=== PATIENT | male | born 1945 | race Caucasian/White ===

== ENCOUNTER 2019-08-10 21:03 | Inpatient (IN) ==
[2019-08-10 22:26] LABS: Basophils # 0.1 K/mcL (0.0-0.2); Basophils % 0.7 %; Eosinophils # 0.2 K/mcL (0.0-0.6); Eosinophils % 2.7 %; Hematocrit 24.9 % (37.5-50.1); Hemoglobin 8.3 g/dL (12.9-16.9); Immature Granulocytes % 0.4 % (0-4); Lymphocytes # 2.7 K/mcL (0.6-4.6); Lymphocytes % 35.5 %; Mean Corpuscular HGB Conc 33.3 g/dL (31.6-35.5); Mean Corpuscular Hemoglobin 31.6 pg (28.0-33.3); Mean Corpuscular Volume 94.7 fL (83.0-100.0); Monocytes # 0.7 K/mcL (0.0-1.3); Monocytes % 8.7 %; Platelet Count 130 K/mcL (140-400); Red Blood Count 2.63 M/mcL (4.19-5.50); Red Cell Distribution Width 14.8 % (11.5-14.5); White Blood Count 7.7 K/mcL (4.3-11.1)
[2019-08-10 22:56] LABS: Albumin/Globulin Ratio 1.1 (1.1-2.2); Bilirubin,Total 0.3 mg/dL (0.3-1.0); Calcium 7.6 mg/dL (8.6-10.3); Globulin 2.8 g/dL (2.4-3.5); Total Protein 5.8 g/dL (6.4-8.9)
[2019-08-10 22:58] LABS: Bilirubin,Urine Negative (Negative); Blood,Urine Negative (Negative); Clarity,Urine Clear (Clear); Color,Urine Yellow (Yellow); Glucose,Urine (UA) Normal (Normal); Ketones,Urine Negative (Negative); Leukocyte Esterase,Urine Negative (Negative); Nitrite,Urine Negative (Negative); Protein,Urine 100 mg/dL (Neg-Trace); Specific Gravity,Urine 1.012 (1.010-1.025); Urobilinogen,Urine Normal (Normal)
[2019-08-10 23:00] LABS: Bacteria,Urine None Seen per hpf (None-Few); Hyaline Casts,Urine None Seen per lpf (None-Few); RBC,Urine 0-3 per hpf (0-3); Squamous Epithelial Cell,Urine Few per lpf (None-Few); WBC,Urine 0-3 per hpf (0-3)
[2019-08-10] MEDS ORDERED: 0.9 % Sodium Chloride 500 ML IVC ONE (23:26)
[2019-08-11] MEDS ORDERED: Naloxone 0.4 MG/ML INJ IVP PRN ×2 (00:36→00:43)
[2019-08-11] MEDS ORDERED: Nicotine 2 MG GUM BC PRN (00:36)
[2019-08-11] MEDS ORDERED: NIFEdipine XL (24 HR) 30 MG TAB.ER.24 PO SCH (00:45)
[2019-08-11] MEDS: Calcium Gluconate 1gm/50mL 1 GM/50 ML BAG IVPB ONE ×2 (01:47→02:13)
[2019-08-11] MEDS: 0.9 % Sodium Chloride 1,000 ML IVC SCH ×2 (01:48→10:59)
[2019-08-11] MEDS: *HR* Heparin 5,000 UNIT/ML VIAL SQ SCH ×2 (05:51→17:43)
[2019-08-11 07:21] LABS: Basophils # 0.1 K/mcL (0.0-0.2); Basophils % 0.8 %; Eosinophils # 0.2 K/mcL (0.0-0.6); Hematocrit 25.6 % (37.5-50.1); Hemoglobin 8.7 g/dL (12.9-16.9); Immature Granulocytes % 0.5 % (0-4); Immature Reticulocyte % 8.4 % (11.0-38.0); Lymphocytes # 2.5 K/mcL (0.6-4.6); Lymphocytes % 31.8 %; Mean Corpuscular Hemoglobin 32.1 pg (28.0-33.3); Mean Corpuscular Volume 94.5 fL (83.0-100.0); Mean Platelet Volume 10.8 fL (9.4-12.4); Monocytes # 0.7 K/mcL (0.0-1.3); Monocytes % 8.4 %; Neutrophils # 4.3 K/mcL (1.6-8.9); Platelet Count 130 K/mcL (140-400); Red Blood Count 2.71 M/mcL (4.19-5.50); Red Cell Distribution Width 14.6 % (11.5-14.5); Retculocyte # 0.05 M/mcL (0.05-0.10); Reticulocyte % 1.8 % (1.6-2.8); Segmented Neutrophils % 55.5 %; White Blood Count 7.7 K/mcL (4.3-11.1)
[2019-08-11 07:27] LABS: Prothrombin Time 10.9 Seconds (9.4-12.1)
[2019-08-11 07:51] LABS: Albumin 3.3 g/dL (3.5-5.7); Albumin/Globulin Ratio 1.2 (1.1-2.2); Bilirubin,Total 0.2 mg/dL (0.3-1.0); Calcium 7.8 mg/dL (8.6-10.3); Globulin 2.8 g/dL (2.4-3.5); Magnesium 1.4 mg/dL (1.6-2.6); Phosphorous 5.1 mg/dL (2.7-4.5); Potassium 4.6 mEq/L (3.5-5.1); Total Protein 6.1 g/dL (6.4-8.9)
[2019-08-11] MEDS: Nicotine 14 MG PATCH.TD24 TD SCH (09:57)
[2019-08-11] MEDS ORDERED: cloNIDine HCl 0.1 MG TABLET PO SCH (11:30)
[2019-08-11] MEDS: Aspirin Enteric Coated 81 MG Tablet PO SCH (11:41)
[2019-08-11 13:18] LABS: Folate 5.5 ng/mL (3.0-16.0)
[2019-08-11] MEDS ORDERED: Cyanocobalamin (B-12) 1,000 MCG/ML VIAL IM ONE (13:29)
[2019-08-11] MEDS: *HR* Labetalol 20 MG/4 ML SYRINGE IVP PRN (20:25)
[2019-08-11] MEDS: cloNIDine HCl 0.1 MG TABLET PO SCH (20:25)
[2019-08-12] MEDS: *HR* Labetalol 20 MG/4 ML SYRINGE IVP PRN (04:03)
[2019-08-12] MEDS: *HR* Heparin 5,000 UNIT/ML VIAL SQ SCH ×3 (04:27→17:33)
[2019-08-12 07:07] LABS: Basophils % 0.4 %; Eosinophils # 0.2 K/mcL (0.0-0.6); Eosinophils % 2.3 %; Hematocrit 23.9 % (37.5-50.1); Hemoglobin 7.8 g/dL (12.9-16.9); Immature Granulocytes % 0.4 % (0-4); Lymphocytes # 2.1 K/mcL (0.6-4.6); Lymphocytes % 28.3 %; Mean Corpuscular HGB Conc 32.6 g/dL (31.6-35.5); Mean Corpuscular Hemoglobin 31.5 pg (28.0-33.3); Mean Corpuscular Volume 96.4 fL (83.0-100.0); Mean Platelet Volume 10.6 fL (9.4-12.4); Monocytes # 0.7 K/mcL (0.0-1.3); Neutrophils # 4.5 K/mcL (1.6-8.9); Platelet Count 128 K/mcL (140-400); Red Blood Count 2.48 M/mcL (4.19-5.50); Red Cell Distribution Width 14.6 % (11.5-14.5); Segmented Neutrophils % 59.6 %; White Blood Count 7.5 K/mcL (4.3-11.1)
[2019-08-12] MEDS: Aspirin Enteric Coated 81 MG Tablet PO SCH (08:55)
[2019-08-12] MEDS: NIFEdipine XL (24 HR) 60 MG TAB.ER.24 PO SCH (08:56)
[2019-08-12] MEDS: Cyanocobalamin (B-12) 1,000 MCG TABLET PO SCH (08:56)
[2019-08-12] MEDS: cloNIDine HCl 0.1 MG TABLET PO SCH ×2 (08:56→20:21)
[2019-08-12] MEDS: Nicotine 14 MG PATCH.TD24 TD SCH (08:56)
[2019-08-12 09:36] LABS: Albumin 2.8 g/dL (3.5-5.7); Calcium 7.5 mg/dL (8.6-10.3); Phosphorous 5.3 mg/dL (2.7-4.5)
[2019-08-12 10:08] LABS: Hepatitis B Surface Antibody 3.61 mIU/mL
[2019-08-12 10:20] LABS: Hepatitis B Surface Antigen Nonreactive (Nonreactive)
[2019-08-12 10:51] LABS: Hepatitis B Core IgM Nonreactive (Nonreactive)
[2019-08-12] MEDS ORDERED: 0.9 % Sodium Chloride 1,000 ML PRIME SCH (11:30)
[2019-08-12] MEDS ORDERED: 0.9 % Sodium Chloride 250 ML IVC PRN (11:30)
[2019-08-12] MEDS ORDERED: Heparin 1,000 UNITS/500 mL 500 ML ONE (12:07)
[2019-08-12] MEDS ORDERED: CeFAZolin 2,000 MG/50 ML BAG IVPB ONE (12:11)
[2019-08-12] MEDS ORDERED: *HR* Midazolam HCl 2 MG/2 ML VIAL IVP ONE (12:11)
[2019-08-12] MEDS ORDERED: *HR* FentaNYL (PF) 100 MCG/2 ML VIAL IVP ONE (12:11)
[2019-08-12] MEDS ORDERED: 0.9 % Sodium Chloride 500 ML ONE (12:14)
[2019-08-12] MEDS ORDERED: *HR* FentaNYL (PF) 100 MCG/2 ML VIAL ONE (12:18)
[2019-08-12] MEDS ORDERED: *HR* Midazolam HCl 2 MG/2 ML VIAL ONE (12:18)
[2019-08-12] MEDS ORDERED: *HR* Heparin 5,000 UNIT/ML VIAL ONE (12:27)
[2019-08-12] MEDS ORDERED: *HR* Heparin 10,000 UNIT/10 ML VIAL IV PRN (14:36)
[2019-08-12] MEDS: amLODIPine 5 MG TABLET PO SCH (15:48)
[2019-08-12] MEDS ORDERED: Perflutren Lipid Microsphere 1.3 ML in 0.9 % Sodium Chloride 8.7 ML IVP ONE (18:28)
[2019-08-12] MEDS ORDERED: Acetaminophen 325 MG TABLET PO PRN (21:22)
[2019-08-13 02:26] LABS: Basophils # 0.1 K/mcL (0.0-0.2); Basophils % 0.7 %; Eosinophils # 0.2 K/mcL (0.0-0.6); Eosinophils % 2.5 %; Hemoglobin 7.9 g/dL (12.9-16.9); Immature Granulocytes % 0.5 % (0-4); Lymphocytes # 1.9 K/mcL (0.6-4.6); Lymphocytes % 23.7 %; Mean Corpuscular HGB Conc 32.9 g/dL (31.6-35.5); Mean Corpuscular Hemoglobin 31.1 pg (28.0-33.3); Mean Corpuscular Volume 94.5 fL (83.0-100.0); Mean Platelet Volume 10.9 fL (9.4-12.4); Monocytes # 0.7 K/mcL (0.0-1.3); Monocytes % 8.1 %; Neutrophils # 5.2 K/mcL (1.6-8.9); Platelet Count 127 K/mcL (140-400); Red Blood Count 2.54 M/mcL (4.19-5.50); Red Cell Distribution Width 14.4 % (11.5-14.5); Segmented Neutrophils % 64.5 %; White Blood Count 8.1 K/mcL (4.3-11.1)
[2019-08-13 02:46] LABS: Calcium 7.6 mg/dL (8.6-10.3); Magnesium 1.6 mg/dL (1.6-2.6); Phosphorous 4.6 mg/dL (2.7-4.5); Potassium 4.9 mEq/L (3.5-5.1)
[2019-08-13] MEDS: *HR* Heparin 5,000 UNIT/ML VIAL SQ SCH ×2 (05:29→17:26)
[2019-08-13] MEDS ORDERED: 0.9 % Sodium Chloride 250 ML IVC PRN ×2 (06:52→10:33)
[2019-08-13] MEDS: Aspirin Enteric Coated 81 MG Tablet PO SCH (08:48)
[2019-08-13] MEDS: Nicotine 14 MG PATCH.TD24 TD SCH (08:49)
[2019-08-13] MEDS: Cyanocobalamin (B-12) 1,000 MCG TABLET PO SCH (08:49)
[2019-08-13] MEDS: NIFEdipine XL (24 HR) 60 MG TAB.ER.24 PO SCH (09:02)
[2019-08-13] MEDS: cloNIDine HCl 0.1 MG TABLET PO SCH (09:02)
[2019-08-13] MEDS: amLODIPine 5 MG TABLET PO SCH (09:03)
[2019-08-13] MEDS: hydrALAZINE 25 MG TABLET PO SCH ×2 (17:26→23:22)
[2019-08-14] MEDS: *HR* Heparin 5,000 UNIT/ML VIAL SQ SCH ×2 (05:46→19:01)
[2019-08-14] MEDS: hydrALAZINE 25 MG TABLET PO SCH ×2 (07:55→19:02)
[2019-08-14] MEDS: Cyanocobalamin (B-12) 1,000 MCG TABLET PO SCH (07:55)
[2019-08-14] MEDS: Nicotine 14 MG PATCH.TD24 TD SCH (07:55)
[2019-08-14] MEDS: NIFEdipine XL (24 HR) 30 MG TAB.ER.24 PO SCH (07:55)
[2019-08-14] MEDS: Aspirin Enteric Coated 81 MG Tablet PO SCH (07:55)
[2019-08-14] MEDS ORDERED: 0.9 % Sodium Chloride 250 ML IVC PRN (08:44)
[2019-08-14] MEDS ORDERED: *HR* Heparin 10,000 UNIT/10 ML VIAL IV PRN (08:44)
[2019-08-14] MEDS ORDERED: 0.9 % Sodium Chloride 1,000 ML PRIME SCH (08:45)
[2019-08-14 10:54] LABS: Metanephrine, Plasma 0.18 nmol/L (0.00-0.49)
[2019-08-14 13:47] LABS: Basophils # 0.1 K/mcL (0.0-0.2); Basophils % 0.7 %; Eosinophils # 0.2 K/mcL (0.0-0.6); Eosinophils % 3.1 %; Hematocrit 26.6 % (37.5-50.1); Hemoglobin 8.9 g/dL (12.9-16.9); Immature Granulocytes % 0.6 % (0-4); Lymphocytes # 2.4 K/mcL (0.6-4.6); Lymphocytes % 33.2 %; Mean Corpuscular HGB Conc 33.5 g/dL (31.6-35.5); Mean Corpuscular Hemoglobin 31.8 pg (28.0-33.3); Mean Platelet Volume 10.8 fL (9.4-12.4); Monocytes # 0.6 K/mcL (0.0-1.3); Monocytes % 8.4 %; Neutrophils # 3.9 K/mcL (1.6-8.9); Platelet Count 142 K/mcL (140-400); Red Cell Distribution Width 13.9 % (11.5-14.5); White Blood Count 7.1 K/mcL (4.3-11.1)
[2019-08-14 13:59] LABS: Magnesium 1.7 mg/dL (1.6-2.6); Phosphorous 3.8 mg/dL (2.7-4.5); Potassium 4.5 mEq/L (3.5-5.1)
[2019-08-15] MEDS: hydrALAZINE 25 MG TABLET PO SCH ×4 (00:24→23:41)
[2019-08-15 02:56] LABS: Hematocrit 26.2 % (37.5-50.1); Hemoglobin 8.4 g/dL (12.9-16.9); Mean Corpuscular HGB Conc 32.1 g/dL (31.6-35.5); Mean Corpuscular Hemoglobin 30.4 pg (28.0-33.3); Mean Corpuscular Volume 94.9 fL (83.0-100.0); Platelet Count 130 K/mcL (140-400); Red Blood Count 2.76 M/mcL (4.19-5.50); Red Cell Distribution Width 13.9 % (11.5-14.5); White Blood Count 7.2 K/mcL (4.3-11.1)
[2019-08-15 03:17] LABS: Calcium 7.7 mg/dL (8.6-10.3); Potassium 3.9 mEq/L (3.5-5.1)
[2019-08-15] MEDS: *HR* Heparin 5,000 UNIT/ML VIAL SQ SCH ×2 (06:18→16:24)
[2019-08-15] MEDS: Cyanocobalamin (B-12) 1,000 MCG TABLET PO SCH (08:03)
[2019-08-15] MEDS: NIFEdipine XL (24 HR) 30 MG TAB.ER.24 PO SCH (08:03)
[2019-08-15] MEDS: Aspirin Enteric Coated 81 MG Tablet PO SCH (08:03)
[2019-08-15] MEDS: Nicotine 14 MG PATCH.TD24 TD SCH (08:03)
[2019-08-15] MEDS: NIFEdipine XL (24 HR) 60 MG TAB.ER.24 PO SCH (09:52)
[2019-08-15] MEDS ORDERED: NIFEdipine XL (24 HR) 30 MG TAB.ER.24 PO ONE ×2 (10:12→12:00)
[2019-08-16 05:28] LABS: Hematocrit 29.7 % (37.5-50.1); Hemoglobin 9.5 g/dL (12.9-16.9); Mean Corpuscular Hemoglobin 30.8 pg (28.0-33.3); Mean Corpuscular Volume 96.4 fL (83.0-100.0); Mean Platelet Volume 10.6 fL (9.4-12.4); Platelet Count 160 K/mcL (140-400); Red Blood Count 3.08 M/mcL (4.19-5.50); Red Cell Distribution Width 13.8 % (11.5-14.5); White Blood Count 7.9 K/mcL (4.3-11.1)
[2019-08-16 06:27] LABS: Calcium 8.2 mg/dL (8.6-10.3); Potassium 4.2 mEq/L (3.5-5.1)
[2019-08-16] MEDS: *HR* Heparin 5,000 UNIT/ML VIAL SQ SCH ×2 (06:48→18:11)
[2019-08-16] MEDS ORDERED: 0.9 % Sodium Chloride 250 ML IVC PRN (07:48)
[2019-08-16] MEDS ORDERED: *HR* Heparin 10,000 UNIT/10 ML VIAL IV PRN ×2 (07:48)
[2019-08-16] MEDS: hydrALAZINE 25 MG TABLET PO SCH ×2 (09:11→14:36)
[2019-08-16] MEDS: NIFEdipine XL (24 HR) 60 MG TAB.ER.24 PO SCH (09:13)
[2019-08-16] MEDS: Cyanocobalamin (B-12) 1,000 MCG TABLET PO SCH (09:13)
[2019-08-16] MEDS: Aspirin Enteric Coated 81 MG Tablet PO SCH (09:13)
[2019-08-16] MEDS ORDERED: NIFEdipine XL (24 HR) 30 MG TAB.ER.24 PO ONE (10:02)
[2019-08-16] MEDS: Nicotine 14 MG PATCH.TD24 TD SCH (12:31)
[2019-08-16] MEDS ORDERED: NIFEdipine XL (24 HR) 60 MG TAB.ER.24 PO SCH (16:00)
[2019-08-17] MEDS: hydrALAZINE 25 MG TABLET PO SCH ×4 (00:18→23:44)
[2019-08-17] MEDS: *HR* Heparin 5,000 UNIT/ML VIAL SQ SCH ×2 (06:00→17:13)
[2019-08-17] MEDS: Cyanocobalamin (B-12) 1,000 MCG TABLET PO SCH (07:53)
[2019-08-17] MEDS: Nicotine 14 MG PATCH.TD24 TD SCH (07:53)
[2019-08-17] MEDS: Aspirin Enteric Coated 81 MG Tablet PO SCH (07:53)
[2019-08-17] MEDS: NIFEdipine XL (24 HR) 30 MG TAB.ER.24 PO SCH (17:13)
[2019-08-17 17:32] LABS: Basophils # 0.1 K/mcL (0.0-0.2); Eosinophils # 0.2 K/mcL (0.0-0.6); Eosinophils % 2.9 %; Hematocrit 31.8 % (37.5-50.1); Hemoglobin 10.6 g/dL (12.9-16.9); Immature Granulocytes % 0.5 % (0-4); Lymphocytes # 2.5 K/mcL (0.6-4.6); Lymphocytes % 29.5 %; Mean Corpuscular HGB Conc 33.3 g/dL (31.6-35.5); Mean Corpuscular Hemoglobin 32.1 pg (28.0-33.3); Mean Corpuscular Volume 96.4 fL (83.0-100.0); Mean Platelet Volume 10.2 fL (9.4-12.4); Monocytes # 0.8 K/mcL (0.0-1.3); Monocytes % 9.6 %; Neutrophils # 4.8 K/mcL (1.6-8.9); Platelet Count 176 K/mcL (140-400); Red Cell Distribution Width 13.9 % (11.5-14.5); Segmented Neutrophils % 56.5 %; White Blood Count 8.4 K/mcL (4.3-11.1)
[2019-08-17 17:42] LABS: Calcium 8.7 mg/dL (8.6-10.3); Potassium 4.5 mEq/L (3.5-5.1)
[2019-08-18] MEDS: *HR* Heparin 5,000 UNIT/ML VIAL SQ SCH ×2 (06:09→21:15)
[2019-08-18 07:02] LABS: Basophils # 0.1 K/mcL (0.0-0.2); Basophils % 0.8 %; Eosinophils # 0.2 K/mcL (0.0-0.6); Hematocrit 30.2 % (37.5-50.1); Hemoglobin 9.7 g/dL (12.9-16.9); Immature Granulocytes % 0.7 % (0-4); Lymphocytes # 2.3 K/mcL (0.6-4.6); Lymphocytes % 29.9 %; Mean Corpuscular HGB Conc 32.1 g/dL (31.6-35.5); Mean Corpuscular Hemoglobin 30.7 pg (28.0-33.3); Mean Corpuscular Volume 95.6 fL (83.0-100.0); Mean Platelet Volume 10.4 fL (9.4-12.4); Monocytes # 0.7 K/mcL (0.0-1.3); Monocytes % 9.3 %; Neutrophils # 4.3 K/mcL (1.6-8.9); Platelet Count 178 K/mcL (140-400); Red Blood Count 3.16 M/mcL (4.19-5.50); Red Cell Distribution Width 13.9 % (11.5-14.5); Segmented Neutrophils % 57.3 %; White Blood Count 7.5 K/mcL (4.3-11.1)
[2019-08-18 07:21] LABS: Calcium 8.4 mg/dL (8.6-10.3); Potassium 4.8 mEq/L (3.5-5.1)
[2019-08-18] MEDS: hydrALAZINE 25 MG TABLET PO SCH ×2 (08:35→17:52)
[2019-08-18] MEDS: Nicotine 14 MG PATCH.TD24 TD SCH (08:35)
[2019-08-18] MEDS: Cyanocobalamin (B-12) 1,000 MCG TABLET PO SCH (08:35)
[2019-08-18] MEDS: Aspirin Enteric Coated 81 MG Tablet PO SCH (08:35)
[2019-08-18] MEDS ORDERED: 0.9 % Sodium Chloride 250 ML IVC PRN (10:51)
[2019-08-18] MEDS ORDERED: *HR* Heparin 10,000 UNIT/10 ML VIAL IV PRN ×2 (10:51)
[2019-08-18] MEDS: NIFEdipine XL (24 HR) 30 MG TAB.ER.24 PO SCH (17:52)
[2019-08-18] MEDS ORDERED: Ondansetron ODT 4 MG TAB.RAPDIS SL ONE (17:58)
[2019-08-18] MEDS ORDERED: Ringers Solution, Lactated 1,000 ML ONE (18:38)
[2019-08-18] MEDS ORDERED: Ringers Solution, Lactated 1,000 ML IVC SCH (18:45)
[2019-08-18 19:23] LABS: Calcium 8.5 mg/dL (8.6-10.3); Potassium 3.2 mEq/L (3.5-5.1)
[2019-08-18] MEDS: Ringers Solution, Lactated 500 ML IVC SCH (21:20)
[2019-08-19] MEDS: hydrALAZINE 25 MG TABLET PO SCH ×2 (00:13→07:55)
[2019-08-19 01:13] LABS: Hematocrit 31.4 % (37.5-50.1); Hemoglobin 10.3 g/dL (12.9-16.9); Mean Corpuscular HGB Conc 32.8 g/dL (31.6-35.5); Mean Corpuscular Volume 94.6 fL (83.0-100.0); Platelet Count 193 K/mcL (140-400); Red Blood Count 3.32 M/mcL (4.19-5.50); White Blood Count 10.5 K/mcL (4.3-11.1)
[2019-08-19 01:49] LABS: Calcium 8.6 mg/dL (8.6-10.3); Potassium 4.5 mEq/L (3.5-5.1)
[2019-08-19] MEDS: Ringers Solution, Lactated 500 ML IVC SCH (03:51)
[2019-08-19 04:52] VITALS: BP 132/54
[2019-08-19] MEDS: *HR* Heparin 5,000 UNIT/ML VIAL SQ SCH (06:04)
[2019-08-19] MEDS: Aspirin Enteric Coated 81 MG Tablet PO SCH (07:55)
[2019-08-19] MEDS: Cyanocobalamin (B-12) 1,000 MCG TABLET PO SCH (07:55)
[2019-08-19] MEDS: Nicotine 14 MG PATCH.TD24 TD SCH (07:56)
== END 2019-08-19 16:27 | disposition home or self-care (01) | DRG 674 ==
LOC: EMEROOARM 21:03 → 3BNU 21:03 → SUATTDRO 23:53 → 3BNU 08-11 00:32 → SUATTDRO 08-11 10:33 → 2ANU 08-14 14:38
PROVIDERS: ADMIT Family Medicine; ATTEND Student in an Organized Health Care Education/Training Program
PROC: IRPERMA (2019-08-12 12:00)

== ENCOUNTER 2019-10-15 07:59 | Inpatient (IN) ==
[2019-10-15] MEDS ORDERED: *HR* Midazolam HCl 5 MG/5 ML VIAL IVP ONE ×2 (08:03→08:58)
[2019-10-15] MEDS ORDERED: 0.9 % Sodium Chloride 1,000 ML IVC SCH (08:15)
[2019-10-15] MEDS: *HR* Midazolam HCl 2 MG/2 ML VIAL IVP ONE ×2 (08:22→13:45)
[2019-10-15 08:27] LABS: Basophils # 0.1 K/mcL (0.0-0.2); Basophils % 0.5 %; Eosinophils # 0.2 K/mcL (0.0-0.6); Eosinophils % 1.4 %; Hematocrit 33.7 % (37.5-50.1); Hemoglobin 10.2 g/dL (12.9-16.9); Immature Granulocytes % 2.2 % (0-4); Lymphocytes # 3.6 K/mcL (0.6-4.6); Lymphocytes % 32.6 %; Mean Corpuscular HGB Conc 30.3 g/dL (31.6-35.5); Mean Corpuscular Hemoglobin 31.5 pg (28.0-33.3); Mean Platelet Volume 10.6 fL (9.4-12.4); Monocytes # 0.5 K/mcL (0.0-1.3); Monocytes % 4.8 %; Neutrophils # 6.4 K/mcL (1.6-8.9); Platelet Count 210 K/mcL (140-400); Red Blood Count 3.24 M/mcL (4.19-5.50); Segmented Neutrophils % 58.5 %
[2019-10-15 08:33] LABS: Prothrombin Time 11.9 Seconds (9.4-12.1)
[2019-10-15 08:41] LABS: Alanine Aminotransferase 14 Units/L (7-52); Albumin 3.9 g/dL (3.5-5.7); Albumin/Globulin Ratio 1.1 (1.1-2.2); Alkaline Phosphatase 97 Units/L (34-104); Aspartate Amino Transferase 17 Units/L (13-39); BUN/Creatinine Ratio 9 (6-26); Bilirubin,Indirect 0.3 mg/dL (0.0-1.0); Bilirubin,Total 0.3 mg/dL (0.3-1.0); Blood Urea Nitrogen 40 mg/dL (8-23); Calcium 8.3 mg/dL (8.6-10.3); Carbon Dioxide 21 mEq/L (23-29); Chloride 107 mEq/L (98-107); Globulin 3.4 g/dL (2.4-3.5); Glucose 149 mg/dL (70-105); Magnesium 1.6 mg/dL (1.6-2.6); Osmolality,Calculated 309 (280-300); Potassium 4.3 mEq/L (3.5-5.1); Sodium 143 mEq/L (136-145); Total Protein 7.3 g/dL (6.4-8.9); eGFR For African Americans 16 (> 60); eGFR For Non-African Americans 13 (> 60)
[2019-10-15] MEDS ORDERED: Isovue-370 500 ML BOTTLE IVP ONE (08:45)
[2019-10-15] MEDS ORDERED: *HR* Propofol 200 MG/20 ML VIAL IVP ONE (08:58)
[2019-10-15] MEDS ORDERED: *HR* Midazolam HCl 2 MG/2 ML VIAL IV ONE (08:58)
[2019-10-15 09:00] LABS: Ethanol < 10 mg/dL (Less than 10)
[2019-10-15 09:05] LABS: Troponin I 0.35 ng/mL (< 0.04)
[2019-10-15] MEDS ORDERED: *HR* LORazepam 2 MG/ML VIAL IVP ONE ×2 (09:13→12:36)
[2019-10-15] MEDS ORDERED: *HR* LORazepam 2 MG/ML VIAL ONE ×2 (09:15→12:31)
[2019-10-15 09:22] LABS: Bilirubin,Urine Negative (Negative); Blood,Urine Small (Negative); Clarity,Urine Clear (Clear); Color,Urine Yellow (Yellow); Glucose,Urine (UA) 100 mg/dL (Normal); Ketones,Urine Negative (Negative); Leukocyte Esterase,Urine Negative (Negative); Nitrite,Urine Negative (Negative); PH,Urine 6.5 pH Units (5.0-8.0); Protein,Urine >=300 mg/dL (Neg-Trace); Specific Gravity,Urine 1.021 (1.010-1.025); Urobilinogen,Urine Normal (Normal)
[2019-10-15 09:25] LABS: Bacteria,Urine None Seen per hpf (None-Few); Squamous Epithelial Cell,Urine Many per lpf (None-Few)
[2019-10-15 10:15] LABS: Ferritin 786 ng/mL (20-250)
[2019-10-15] MEDS ORDERED: Naloxone 0.4 MG/ML INJ IVP PRN ×2 (10:15→13:26)
[2019-10-15] MEDS ORDERED: *HR* Heparin 5,000 UNIT/ML VIAL IVP PRN ×2 (10:20)
[2019-10-15] MEDS ORDERED: Aspirin 325 MG TABLET PO ONE (10:20)
[2019-10-15] MEDS ORDERED: *HR* Heparin 5,000 UNIT/ML VIAL IVP ONE (10:20)
[2019-10-15] MEDS ORDERED: Heparin 25,000 UNIT/250 ML D5W 25,000 UNIT/250 ML IV.SOLN IVC SCH (10:30)
[2019-10-15] MEDS ORDERED: 0.9 % Sodium Chloride 500 ML ONE (10:59)
[2019-10-15] MEDS ORDERED: Furosemide 40 MG/4 ML VIAL IVP ONE (12:37)
[2019-10-15] MEDS ORDERED: niCARdipine 20 MG in 0.9 % Sodium Chloride 192 ML IVC SCH (12:45)
[2019-10-15] MEDS: Dexmedetomidine HCl 400 MCG/100 ML MLS IVC SCH (13:15)
[2019-10-15] MEDS: FentaNYL (PF) 1,000 MCG in 0.9 % Sodium Chloride 80 ML IVC SCH ×2 (13:16→21:16)
[2019-10-15] MEDS ORDERED: 0.9 % Sodium Chloride 250 ML IVC PRN (13:24)
[2019-10-15] MEDS ORDERED: Acetaminophen 325 MG TABLET PO PRN (13:26)
[2019-10-15] MEDS ORDERED: 0.9 % Sodium Chloride 1,000 ML PRIME SCH (13:30)
[2019-10-15] MEDS ORDERED: Artificial Tears SOLN 15 ML BOTTLE BOTH EYES PRN (13:34)
[2019-10-15] MEDS ORDERED: *HR* Midazolam HCl 2 MG/2 ML VIAL IVP ONE (13:44)
[2019-10-15] MEDS ORDERED: *HR* Heparin 10,000 UNIT/10 ML VIAL ONE (15:08)
[2019-10-15 15:12] LABS: Hematocrit 27.7 % (37.5-50.1); Mean Corpuscular Hemoglobin 31.9 pg (28.0-33.3); Mean Corpuscular Volume 102.6 fL (83.0-100.0); Platelet Count 147 K/mcL (140-400); Red Cell Distribution Width 14.2 % (11.5-14.5); White Blood Count 8.6 K/mcL (4.3-11.1)
[2019-10-15 15:13] LABS: ABG Base Excess -1 mEq/L (-2 to 3); ABG HCO3 23 mEq/L (21-27); ABG Oxygen Saturation 100 % (95-98); ABG PCO2 36 mmHg (35-45); ABG PH 7.42 pH Units (7.32-7.45); ABG PO2 347 mmHg (85-104); ABG TCO2 25 mEq/L (20-26); Blood Gas VT 480 cc
[2019-10-15 15:14] LABS: Hemoglobin 8.6 g/dL (12.9-16.9)
[2019-10-15] MEDS: Budesonide/Formoterol 160/4.5 1 PUFF INH IH SCH ×2 (15:16→22:35)
[2019-10-15] MEDS ORDERED: levETIRAcetam 1,000 MG in 0.9 % Sodium Chloride 100 ML IVPB ONE (15:45)
[2019-10-15] MEDS: Pantoprazole 40 MG VIAL IVP SCH (15:48)
[2019-10-15] MEDS: Artificial Tears SOLN 15 ML BOTTLE BOTH EYES SCH ×2 (15:48→21:21)
[2019-10-15 15:49] LABS: Amphetamine Screen,Urine Negative ng/mL (Cutoff=1000); Barbiturate Screen,Urine Negative ng/mL (Cutoff=200); Benzodiazepines Screen,Urine Positive ng/mL (Cutoff=200); Cannabinoid Screen,Urine Negative ng/mL (Cutoff = 50); Cocaine Screen,Urine Negative ng/mL (Cutoff= 300); Opiate Screen,Urine Negative ng/mL (Cutoff=300); Phencyclidine Screen,Urine Negative ng/mL (Cutoff=25)
[2019-10-15] MEDS: Chlorhexidine Rinse 15 ML MOUTHWASH MM SCH ×2 (15:49→21:21)
[2019-10-15] MEDS ORDERED: Doxycycline 100 MG in 0.9 % Sodium Chloride Mini Bag 100 ML IVPB SCH (18:00)
[2019-10-15] MEDS ORDERED: Piperacillin/Tazobactam 3.375 GM in 0.9 % Sodium Chloride Mini Bag 100 ML IVPB SCH (18:00)
[2019-10-15 18:34] LABS: Heparin anti-factor XA UFH < 0.04 IU/mL (0.30-0.70); Prothrombin Time 10.8 Seconds (9.4-12.1)
[2019-10-15 19:38] LABS: Hepatitis B Surface Antibody < 3.10 mIU/mL
[2019-10-15 19:49] LABS: Hepatitis B Surface Antigen Nonreactive (Nonreactive)
[2019-10-15] MEDS: Doxycycline 100 MG in 0.9 % Sodium Chloride Mini Bag 100 ML IVPB SCH ×2 (21:15→21:21)
[2019-10-15] MEDS: *HR* Heparin 5,000 UNIT/ML VIAL SQ SCH (21:20)
[2019-10-15] MEDS: Piperacillin/Tazobactam 3.375 GM in 0.9 % Sodium Chloride Mini Bag 100 ML IVPB SCH (21:23)
[2019-10-16] MEDS: Artificial Tears SOLN 15 ML BOTTLE BOTH EYES SCH ×6 (01:05→23:35)
[2019-10-16 04:19] LABS: ABG Base Excess 1 mEq/L (-2 to 3); ABG HCO3 27 mEq/L (21-27); ABG Oxygen Saturation 93 % (95-98); ABG PCO2 48 mmHg (35-45); ABG PH 7.35 pH Units (7.32-7.45); ABG PO2 72 mmHg (85-104); ABG TCO2 29 mEq/L (20-26); Blood Gas Modality ASSIST CONTROL; Blood Gas VT 400 cc
[2019-10-16 06:07] LABS: Albumin 3.1 g/dL (3.5-5.7); Albumin/Globulin Ratio 1.1 (1.1-2.2); Bilirubin,Direct 0.2 mg/dL (0.0-0.2); Bilirubin,Indirect 0.2 mg/dL (0.0-1.0); Bilirubin,Total 0.4 mg/dL (0.3-1.0); Calcium 7.5 mg/dL (8.6-10.3); Globulin 2.8 g/dL (2.4-3.5); Potassium 4.9 mEq/L (3.5-5.1); Total Protein 5.9 g/dL (6.4-8.9)
[2019-10-16 06:08] LABS: Chol/HDL Ratio 3.6 (0-4.9); Magnesium 1.4 mg/dL (1.6-2.6); Phosphorous 4.7 mg/dL (2.7-4.5)
[2019-10-16] MEDS: *HR* Heparin 5,000 UNIT/ML VIAL SQ SCH ×2 (06:09→17:19)
[2019-10-16] MEDS: Doxycycline 100 MG in 0.9 % Sodium Chloride Mini Bag 100 ML IVPB SCH ×2 (06:09→17:18)
[2019-10-16] MEDS: Budesonide/Formoterol 160/4.5 1 PUFF INH IH SCH ×2 (07:35→22:56)
[2019-10-16] MEDS: Chlorhexidine Rinse 15 ML MOUTHWASH MM SCH ×2 (07:54→23:35)
[2019-10-16] MEDS: Piperacillin/Tazobactam 3.375 GM in 0.9 % Sodium Chloride Mini Bag 100 ML IVPB SCH ×2 (07:55→21:05)
[2019-10-16] MEDS: Pantoprazole 40 MG VIAL IVP SCH (07:55)
[2019-10-16] MEDS ORDERED: Aminoglycoside Consult 1 EACH MC ONE (08:18)
[2019-10-16] MEDS ORDERED: Aspirin Enteric Coated 81 MG Tablet PO SCH (09:00)
[2019-10-16 12:00] LABS: Basophils # 0.1 K/mcL (0.0-0.2); Basophils % 0.6 %; Eosinophils # 0.1 K/mcL (0.0-0.6); Hematocrit 29.7 % (37.5-50.1); Hemoglobin 9.1 g/dL (12.9-16.9); Immature Granulocytes % 0.6 % (0-4); Lymphocytes # 1.3 K/mcL (0.6-4.6); Lymphocytes % 11.5 %; Mean Corpuscular HGB Conc 30.6 g/dL (31.6-35.5); Mean Corpuscular Hemoglobin 31.3 pg (28.0-33.3); Mean Corpuscular Volume 102.1 fL (83.0-100.0); Mean Platelet Volume 10.2 fL (9.4-12.4); Monocytes # 0.7 K/mcL (0.0-1.3); Monocytes % 6.7 %; Neutrophils # 8.7 K/mcL (1.6-8.9); Platelet Count 147 K/mcL (140-400); Red Blood Count 2.91 M/mcL (4.19-5.50); Red Cell Distribution Width 14.2 % (11.5-14.5); Segmented Neutrophils % 79.6 %; White Blood Count 10.9 K/mcL (4.3-11.1)
[2019-10-16] MEDS: FentaNYL (PF) 1,000 MCG in 0.9 % Sodium Chloride 80 ML IVC SCH (14:24)
[2019-10-16] MEDS: Dexmedetomidine HCl 400 MCG/100 ML MLS IVC SCH (14:26)
[2019-10-16 23:19] LABS: VBG Ionized Calcium 0.98 mmol/L (1.15-1.35)
[2019-10-16 23:32] LABS: Calcium 7.7 mg/dL (8.6-10.3)
[2019-10-16] MEDS: NIFEdipine 10 MG CAPSULE PO SCH (23:34)
[2019-10-16] MEDS: Docusate Oral Soln 100 MG/10 ML UDC GTUBE SCH (23:34)
[2019-10-17 00:06] LABS: Magnesium 1.5 mg/dL (1.6-2.6); Phosphorous 6.2 mg/dL (2.7-4.5)
[2019-10-17] MEDS ORDERED: Potassium Phosphate 44 MEQ in 0.9 % Sodium Chloride 250 ML IVPB PRN (00:20)
[2019-10-17] MEDS ORDERED: Potassium Chloride 40 MEQ/200 ML BAG IVPB PRN (00:20)
[2019-10-17] MEDS: Calcium Gluconate 1gm/50mL 1 GM/50 ML BAG IVPB PRN (00:57)
[2019-10-17] MEDS: Artificial Tears SOLN 15 ML BOTTLE BOTH EYES SCH ×7 (01:34→23:53)
[2019-10-17 05:19] LABS: ABG Base Excess -2 mEq/L (-2 to 3); ABG HCO3 24 mEq/L (21-27); ABG Oxygen Saturation 97 % (95-98); ABG PCO2 45 mmHg (35-45); ABG PH 7.33 pH Units (7.32-7.45); ABG PO2 101 mmHg (85-104); ABG TCO2 25 mEq/L (20-26); Blood Gas Modality AF; Blood Gas VT 480 cc
[2019-10-17 05:27] LABS: Basophils # 0.1 K/mcL (0.0-0.2); Basophils % 0.5 %; Eosinophils # 0.2 K/mcL (0.0-0.6); Eosinophils % 1.8 %; Hemoglobin 8.4 g/dL (12.9-16.9); Immature Granulocytes % 0.4 % (0-4); Lymphocytes # 2.3 K/mcL (0.6-4.6); Lymphocytes % 25.5 %; Mean Corpuscular HGB Conc 31.1 g/dL (31.6-35.5); Mean Corpuscular Hemoglobin 31.7 pg (28.0-33.3); Mean Corpuscular Volume 101.9 fL (83.0-100.0); Mean Platelet Volume 10.6 fL (9.4-12.4); Monocytes # 0.6 K/mcL (0.0-1.3); Neutrophils # 5.9 K/mcL (1.6-8.9); Platelet Count 146 K/mcL (140-400); Red Blood Count 2.65 M/mcL (4.19-5.50); Segmented Neutrophils % 64.8 %; White Blood Count 9.1 K/mcL (4.3-11.1)
[2019-10-17 05:50] LABS: Albumin 2.9 g/dL (3.5-5.7); Bilirubin,Total 0.3 mg/dL (0.3-1.0); Calcium 7.9 mg/dL (8.6-10.3); Globulin 2.8 g/dL (2.4-3.5); Magnesium 2.3 mg/dL (1.6-2.6); Phosphorous 6.6 mg/dL (2.7-4.5); Potassium 4.8 mEq/L (3.5-5.1); Total Protein 5.7 g/dL (6.4-8.9)
[2019-10-17] MEDS: *HR* Heparin 5,000 UNIT/ML VIAL SQ SCH ×2 (06:19→17:39)
[2019-10-17] MEDS: Doxycycline 100 MG in 0.9 % Sodium Chloride Mini Bag 100 ML IVPB SCH ×2 (06:19→17:39)
[2019-10-17] MEDS: Budesonide/Formoterol 160/4.5 1 PUFF INH IH SCH ×2 (07:34→19:51)
[2019-10-17] MEDS: Docusate Oral Soln 100 MG/10 ML UDC GTUBE SCH ×2 (09:40→20:16)
[2019-10-17] MEDS: Aspirin 81 MG TAB.CHEW PO SCH (09:40)
[2019-10-17] MEDS: Chlorhexidine Rinse 15 ML MOUTHWASH MM SCH ×2 (09:41→20:15)
[2019-10-17] MEDS: Pantoprazole 40 MG VIAL IVP SCH (09:41)
[2019-10-17] MEDS: NIFEdipine 10 MG CAPSULE PO SCH ×2 (09:41→20:16)
[2019-10-17] MEDS: Piperacillin/Tazobactam 3.375 GM in 0.9 % Sodium Chloride Mini Bag 100 ML IVPB SCH ×2 (09:41→20:16)
[2019-10-17] MEDS: Dexmedetomidine HCl 400 MCG/100 ML MLS IVC SCH (11:53)
[2019-10-17] MEDS: FentaNYL (PF) 1,000 MCG in 0.9 % Sodium Chloride 80 ML IVC SCH (14:13)
[2019-10-18 04:53] LABS: ABG Base Excess -2 mEq/L (-2 to 3); ABG HCO3 24 mEq/L (21-27); ABG Oxygen Saturation 94 % (95-98); ABG PCO2 44 mmHg (35-45); ABG PH 7.34 pH Units (7.32-7.45); ABG PO2 77 mmHg (85-104); ABG TCO2 25 mEq/L (20-26); Blood Gas Modality AF; Blood Gas VT 480 cc
[2019-10-18] MEDS: Artificial Tears SOLN 15 ML BOTTLE BOTH EYES SCH ×6 (05:03→23:49)
[2019-10-18 05:29] LABS: Hematocrit 28.7 % (37.5-50.1); Mean Corpuscular HGB Conc 31.4 g/dL (31.6-35.5); Mean Corpuscular Hemoglobin 31.8 pg (28.0-33.3); Mean Corpuscular Volume 101.4 fL (83.0-100.0); Mean Platelet Volume 10.1 fL (9.4-12.4); Platelet Count 174 K/mcL (140-400); Red Blood Count 2.83 M/mcL (4.19-5.50); Red Cell Distribution Width 13.9 % (11.5-14.5); White Blood Count 9.1 K/mcL (4.3-11.1)
[2019-10-18 05:33] LABS: VBG Ionized Calcium 1.02 mmol/L (1.15-1.35)
[2019-10-18 05:55] LABS: Calcium 7.9 mg/dL (8.6-10.3); Magnesium 2.1 mg/dL (1.6-2.6); Phosphorous 6.9 mg/dL (2.7-4.5)
[2019-10-18 06:18] LABS: Folate 12.5 ng/mL (3.0-16.0)
[2019-10-18] MEDS: Doxycycline 100 MG in 0.9 % Sodium Chloride Mini Bag 100 ML IVPB SCH (06:18)
[2019-10-18] MEDS: *HR* Heparin 5,000 UNIT/ML VIAL SQ SCH ×2 (06:18→17:38)
[2019-10-18] MEDS: Calcium Gluconate 1gm/50mL 1 GM/50 ML BAG IVPB PRN ×2 (06:47→17:57)
[2019-10-18] MEDS: Budesonide/Formoterol 160/4.5 1 PUFF INH IH SCH ×2 (07:23→21:44)
[2019-10-18] MEDS ORDERED: 0.9 % Sodium Chloride 250 ML IVC PRN (07:33)
[2019-10-18] MEDS ORDERED: *HR* Heparin 10,000 UNIT/10 ML VIAL IV PRN (07:33)
[2019-10-18] MEDS: Pantoprazole 40 MG VIAL IVP SCH (08:39)
[2019-10-18] MEDS: Docusate Oral Soln 100 MG/10 ML UDC GTUBE SCH ×2 (08:39→20:35)
[2019-10-18] MEDS: Chlorhexidine Rinse 15 ML MOUTHWASH MM SCH ×2 (08:39→20:35)
[2019-10-18] MEDS: Aspirin 81 MG TAB.CHEW PO SCH (08:40)
[2019-10-18] MEDS: NIFEdipine 10 MG CAPSULE PO SCH (08:49)
[2019-10-18] MEDS ORDERED: *HR* Midazolam HCl 2 MG/2 ML VIAL IVP PRN (10:39)
[2019-10-18] MEDS ORDERED: Iron Sucrose Complex 200 MG in 0.9 % Sodium Chloride 100 ML IVPB SCH (14:45)
[2019-10-18 15:09] LABS: VBG Ionized Calcium 1.06 mmol/L (1.15-1.35)
[2019-10-18] MEDS ORDERED: NIFEdipine 10 MG CAPSULE PO SCH (21:00)
[2019-10-18] MEDS: FentaNYL (PF) 1,000 MCG in 0.9 % Sodium Chloride 80 ML IVC SCH (23:30)
[2019-10-18] MEDS: Dexmedetomidine HCl 400 MCG/100 ML MLS IVC SCH (23:40)
[2019-10-18 23:43] LABS: VBG Ionized Calcium 1.09 mmol/L (1.15-1.35)
[2019-10-19] MEDS: Calcium Gluconate 1gm/50mL 1 GM/50 ML BAG IVPB PRN (01:09)
[2019-10-19 03:52] LABS: ABG Base Excess 3 mEq/L (-2 to 3); ABG HCO3 29 mEq/L (21-27); ABG Oxygen Saturation 92 % (95-98); ABG PCO2 52 mmHg (35-45); ABG PH 7.36 pH Units (7.32-7.45); ABG PO2 66 mmHg (85-104); ABG TCO2 31 mEq/L (20-26); Blood Gas Modality ASSIST CONTROL; Blood Gas VT 480 cc
[2019-10-19] MEDS: Artificial Tears SOLN 15 ML BOTTLE BOTH EYES SCH ×5 (04:00→19:40)
[2019-10-19 04:49] LABS: Basophils # 0.1 K/mcL (0.0-0.2); Basophils % 0.6 %; Eosinophils # 0.2 K/mcL (0.0-0.6); Eosinophils % 2.2 %; Hemoglobin 8.8 g/dL (12.9-16.9); Immature Granulocytes % 0.7 % (0-4); Lymphocytes # 1.8 K/mcL (0.6-4.6); Lymphocytes % 20.9 %; Mean Corpuscular HGB Conc 31.4 g/dL (31.6-35.5); Mean Corpuscular Hemoglobin 31.5 pg (28.0-33.3); Mean Corpuscular Volume 100.4 fL (83.0-100.0); Mean Platelet Volume 10.4 fL (9.4-12.4); Monocytes # 0.8 K/mcL (0.0-1.3); Monocytes % 9.3 %; Neutrophils # 5.8 K/mcL (1.6-8.9); Nucleated Red Blood Cells 0.5 /100 WBC (0); Platelet Count 213 K/mcL (140-400); Red Blood Count 2.79 M/mcL (4.19-5.50); Segmented Neutrophils % 66.3 %; White Blood Count 8.8 K/mcL (4.3-11.1)
[2019-10-19 04:52] LABS: VBG Ionized Calcium 1.12 mmol/L (1.15-1.35)
[2019-10-19 05:09] LABS: Calcium 8.5 mg/dL (8.6-10.3); Magnesium 1.9 mg/dL (1.6-2.6); Phosphorous 5.3 mg/dL (2.7-4.5); Potassium 4.3 mEq/L (3.5-5.1)
[2019-10-19] MEDS: *HR* Heparin 5,000 UNIT/ML VIAL SQ SCH ×2 (05:48→17:07)
[2019-10-19] MEDS: Budesonide/Formoterol 160/4.5 1 PUFF INH IH SCH ×2 (07:32→21:45)
[2019-10-19] MEDS: Chlorhexidine Rinse 15 ML MOUTHWASH MM SCH ×2 (07:34→19:40)
[2019-10-19] MEDS: Docusate Oral Soln 100 MG/10 ML UDC GTUBE SCH ×2 (07:34→19:40)
[2019-10-19] MEDS: Aspirin 81 MG TAB.CHEW PO SCH (07:34)
[2019-10-19] MEDS: Pantoprazole 40 MG VIAL IVP SCH (07:34)
[2019-10-19] MEDS ORDERED: amLODIPine 5 MG TABLET PO SCH (09:00)
[2019-10-19 11:19] LABS: Thyroid Stimulating Hormone 10.012 mcIU/mL (0.340-5.600)
[2019-10-19 11:21] LABS: Triiodothyronine (T3) Free 3.36 pg/mL (2.50-3.90)
[2019-10-20] MEDS: Artificial Tears SOLN 15 ML BOTTLE BOTH EYES SCH ×6 (03:29→20:31)
[2019-10-20 03:33] LABS: Basophils # 0.1 K/mcL (0.0-0.2); Basophils % 0.6 %; Eosinophils # 0.2 K/mcL (0.0-0.6); Eosinophils % 2.6 %; Hematocrit 27.4 % (37.5-50.1); Hemoglobin 8.7 g/dL (12.9-16.9); Immature Granulocytes % 1.2 % (0-4); Lymphocytes # 1.4 K/mcL (0.6-4.6); Lymphocytes % 15.5 %; Mean Corpuscular HGB Conc 31.8 g/dL (31.6-35.5); Mean Corpuscular Hemoglobin 31.9 pg (28.0-33.3); Mean Corpuscular Volume 100.4 fL (83.0-100.0); Monocytes # 0.8 K/mcL (0.0-1.3); Monocytes % 9.2 %; Neutrophils # 6.4 K/mcL (1.6-8.9); Nucleated Red Blood Cells 0.7 /100 WBC (0); Platelet Count 236 K/mcL (140-400); Red Blood Count 2.73 M/mcL (4.19-5.50); Red Cell Distribution Width 14.2 % (11.5-14.5); Segmented Neutrophils % 70.9 %
[2019-10-20 03:36] LABS: VBG Ionized Calcium 1.13 mmol/L (1.15-1.35)
[2019-10-20 03:51] LABS: ABG Base Excess 4 mEq/L (-2 to 3); ABG HCO3 29 mEq/L (21-27); ABG Oxygen Saturation 94 % (95-98); ABG PCO2 44 mmHg (35-45); ABG PH 7.42 pH Units (7.32-7.45); ABG PO2 72 mmHg (85-104); ABG TCO2 30 mEq/L (20-26); Blood Gas VT 480 cc
[2019-10-20 03:53] LABS: Calcium 8.7 mg/dL (8.6-10.3); Magnesium 2.6 mg/dL (1.6-2.6); Phosphorous 4.6 mg/dL (2.7-4.5); Potassium 4.1 mEq/L (3.5-5.1)
[2019-10-20] MEDS: *HR* Heparin 5,000 UNIT/ML VIAL SQ SCH ×2 (05:35→18:10)
[2019-10-20] MEDS ORDERED: 0.9 % Sodium Chloride 2,000 ML ONE (06:56)
[2019-10-20] MEDS: Budesonide/Formoterol 160/4.5 1 PUFF INH IH SCH ×2 (07:08→19:51)
[2019-10-20] MEDS: Chlorhexidine Rinse 15 ML MOUTHWASH MM SCH ×2 (08:01→20:31)
[2019-10-20] MEDS: Aspirin 81 MG TAB.CHEW PO SCH (08:01)
[2019-10-20] MEDS: Pantoprazole 40 MG VIAL IVP SCH (08:01)
[2019-10-20] MEDS: Docusate Oral Soln 100 MG/10 ML UDC GTUBE SCH ×2 (08:02→20:32)
[2019-10-20] MEDS ORDERED: *HR* Heparin 10,000 UNIT/10 ML VIAL IV PRN (08:23)
[2019-10-20] MEDS ORDERED: 0.9 % Sodium Chloride 250 ML IVC PRN (08:23)
[2019-10-20] MEDS ORDERED: 0.9 % Sodium Chloride 1,000 ML PRIME SCH (08:30)
[2019-10-20] MEDS ORDERED: amLODIPine 5 MG TABLET PO ONE (09:58)
[2019-10-20] MEDS ORDERED: Dexmedetomidine HCl 400 MCG/100 ML MLS IVC ONE (20:55)
[2019-10-20] MEDS: Dexmedetomidine HCl 400 MCG/100 ML MLS IVC SCH (21:00)
[2019-10-21 04:16] LABS: Basophils # 0.1 K/mcL (0.0-0.2); Basophils % 0.5 %; Eosinophils # 0.2 K/mcL (0.0-0.6); Eosinophils % 1.9 %; Hematocrit 29.4 % (37.5-50.1); Hemoglobin 9.1 g/dL (12.9-16.9); Immature Granulocytes % 1.6 % (0-4); Lymphocytes # 2.3 K/mcL (0.6-4.6); Lymphocytes % 22.5 %; Mean Corpuscular Hemoglobin 31.6 pg (28.0-33.3); Mean Corpuscular Volume 102.1 fL (83.0-100.0); Mean Platelet Volume 10.2 fL (9.4-12.4); Monocytes # 1.1 K/mcL (0.0-1.3); Monocytes % 10.8 %; Neutrophils # 6.4 K/mcL (1.6-8.9); Nucleated Red Blood Cells 1.7 /100 WBC (0); Platelet Count 254 K/mcL (140-400); Red Blood Count 2.88 M/mcL (4.19-5.50); Red Cell Distribution Width 14.4 % (11.5-14.5); Segmented Neutrophils % 62.7 %; White Blood Count 10.2 K/mcL (4.3-11.1)
[2019-10-21] MEDS: Artificial Tears SOLN 15 ML BOTTLE BOTH EYES SCH ×5 (04:25→08:17)
[2019-10-21 04:35] LABS: Calcium 8.4 mg/dL (8.6-10.3); Magnesium 2.3 mg/dL (1.6-2.6); Phosphorous 4.7 mg/dL (2.7-4.5); Potassium 3.8 mEq/L (3.5-5.1)
[2019-10-21 04:38] LABS: ABG Base Excess 3 mEq/L (-2 to 3); ABG HCO3 28 mEq/L (21-27); ABG Oxygen Saturation 96 % (95-98); ABG PCO2 46 mmHg (35-45); ABG PO2 81 mmHg (85-104); ABG TCO2 30 mEq/L (20-26); Blood Gas Modality AF; Blood Gas VT 480 cc
[2019-10-21 04:40] LABS: VBG Ionized Calcium 1.12 mmol/L (1.15-1.35)
[2019-10-21] MEDS: *HR* Heparin 5,000 UNIT/ML VIAL SQ SCH ×2 (06:19→17:00)
[2019-10-21] MEDS: Budesonide/Formoterol 160/4.5 1 PUFF INH IH SCH ×2 (07:25→19:50)
[2019-10-21] MEDS: Aspirin 81 MG TAB.CHEW PO SCH (07:53)
[2019-10-21] MEDS: Chlorhexidine Rinse 15 ML MOUTHWASH MM SCH (07:53)
[2019-10-21] MEDS: amLODIPine 5 MG TABLET PO SCH (07:54)
[2019-10-21] MEDS: Docusate Oral Soln 100 MG/10 ML UDC GTUBE SCH ×2 (07:54→19:54)
[2019-10-21] MEDS: Pantoprazole 40 MG VIAL IVP SCH (08:12)
[2019-10-21] MEDS: Calcium Acetate 667 MG CAPSULE PO SCH ×2 (11:30→15:26)
[2019-10-21] MEDS: Dexmedetomidine HCl 400 MCG/100 ML MLS IVC SCH (19:54)
[2019-10-22 04:42] LABS: Hematocrit 28.8 % (37.5-50.1); Hemoglobin 9.1 g/dL (12.9-16.9); Mean Corpuscular HGB Conc 31.6 g/dL (31.6-35.5); Mean Corpuscular Volume 101.4 fL (83.0-100.0); Mean Platelet Volume 9.8 fL (9.4-12.4); Platelet Count 273 K/mcL (140-400); Red Blood Count 2.84 M/mcL (4.19-5.50); Red Cell Distribution Width 15.1 % (11.5-14.5); White Blood Count 9.1 K/mcL (4.3-11.1)
[2019-10-22 05:03] LABS: Calcium 8.7 mg/dL (8.6-10.3); Magnesium 2.5 mg/dL (1.6-2.6); Phosphorous 6.5 mg/dL (2.7-4.5); Potassium 4.4 mEq/L (3.5-5.1)
[2019-10-22] MEDS: *HR* Heparin 5,000 UNIT/ML VIAL SQ SCH ×2 (05:48→17:36)
[2019-10-22] MEDS: Budesonide/Formoterol 160/4.5 1 PUFF INH IH SCH ×2 (07:15→20:27)
[2019-10-22] MEDS ORDERED: 0.9 % Sodium Chloride 250 ML IVC PRN ×3 (07:42→10:12)
[2019-10-22] MEDS ORDERED: *HR* Heparin 10,000 UNIT/10 ML VIAL IV PRN ×2 (07:42→10:12)
[2019-10-22] MEDS ORDERED: 0.9 % Sodium Chloride 1,000 ML PRIME SCH ×3 (07:45→10:12)
[2019-10-22] MEDS: Pantoprazole 40 MG VIAL IVP SCH (08:33)
[2019-10-22] MEDS: amLODIPine 5 MG TABLET PO SCH (08:33)
[2019-10-22] MEDS: Docusate Oral Soln 100 MG/10 ML UDC GTUBE SCH ×2 (08:33→21:27)
[2019-10-22] MEDS: Calcium Acetate 667 MG CAPSULE PO SCH ×3 (08:33→17:36)
[2019-10-22] MEDS: Aspirin 81 MG TAB.CHEW PO SCH (08:33)
[2019-10-22] MEDS ORDERED: Potassium Phosphate 44 MEQ in 0.9 % Sodium Chloride 250 ML IVPB PRN (10:12)
[2019-10-22] MEDS ORDERED: Calcium Gluconate 1gm/50mL 1 GM/50 ML BAG IVPB PRN (10:12)
[2019-10-22] MEDS ORDERED: Potassium Chloride 40 MEQ/200 ML BAG IVPB PRN (10:12)
[2019-10-22] MEDS ORDERED: Naloxone 0.4 MG/ML INJ IVP PRN (10:12)
[2019-10-22] MEDS ORDERED: Dexmedetomidine HCl 400 MCG/100 ML MLS IVC SCH (10:12)
[2019-10-22] MEDS ORDERED: Acetaminophen 325 MG TABLET PO PRN (10:12)
[2019-10-23 04:47] LABS: Basophils # 0.1 K/mcL (0.0-0.2); Basophils % 0.9 %; Eosinophils # 0.3 K/mcL (0.0-0.6); Hematocrit 31.9 % (37.5-50.1); Hemoglobin 10.1 g/dL (12.9-16.9); Immature Granulocytes % 0.9 % (0-4); Lymphocytes # 2.3 K/mcL (0.6-4.6); Lymphocytes % 26.8 %; Mean Corpuscular HGB Conc 31.7 g/dL (31.6-35.5); Mean Corpuscular Hemoglobin 31.9 pg (28.0-33.3); Mean Corpuscular Volume 100.6 fL (83.0-100.0); Mean Platelet Volume 9.2 fL (9.4-12.4); Monocytes # 0.9 K/mcL (0.0-1.3); Monocytes % 10.3 %; Neutrophils # 5.1 K/mcL (1.6-8.9); Nucleated Red Blood Cells 0.2 /100 WBC (0); Platelet Count 263 K/mcL (140-400); Red Blood Count 3.17 M/mcL (4.19-5.50); Red Cell Distribution Width 15.4 % (11.5-14.5); Segmented Neutrophils % 58.1 %; White Blood Count 8.7 K/mcL (4.3-11.1)
[2019-10-23 05:05] LABS: Calcium 8.7 mg/dL (8.6-10.3); Potassium 4.4 mEq/L (3.5-5.1)
[2019-10-23] MEDS: *HR* Heparin 5,000 UNIT/ML VIAL SQ SCH ×2 (05:33→16:27)
[2019-10-23] MEDS: Budesonide/Formoterol 160/4.5 1 PUFF INH IH SCH ×3 (08:00→21:30)
[2019-10-23] MEDS: Aspirin 81 MG TAB.CHEW PO SCH (09:06)
[2019-10-23] MEDS: amLODIPine 5 MG TABLET PO SCH (09:06)
[2019-10-23] MEDS: Calcium Acetate 667 MG CAPSULE PO SCH (09:06)
[2019-10-23] MEDS: Pantoprazole 40 MG VIAL IVP SCH (09:07)
[2019-10-23] MEDS: Docusate Oral Soln 100 MG/10 ML UDC GTUBE SCH (09:07)
[2019-10-23] MEDS ORDERED: Nicotine 21 MG PATCH.TD24 TD ONE (16:48)
[2019-10-24 01:21] LABS: Basophils # 0.1 K/mcL (0.0-0.2); Basophils % 0.8 %; Eosinophils # 0.2 K/mcL (0.0-0.6); Eosinophils % 2.9 %; Hematocrit 32.3 % (37.5-50.1); Hemoglobin 10.1 g/dL (12.9-16.9); Immature Granulocytes % 1.1 % (0-4); Lymphocytes # 1.8 K/mcL (0.6-4.6); Lymphocytes % 24.4 %; Mean Corpuscular HGB Conc 31.3 g/dL (31.6-35.5); Mean Corpuscular Hemoglobin 31.5 pg (28.0-33.3); Mean Corpuscular Volume 100.6 fL (83.0-100.0); Mean Platelet Volume 9.6 fL (9.4-12.4); Monocytes # 0.7 K/mcL (0.0-1.3); Monocytes % 9.9 %; Neutrophils # 4.6 K/mcL (1.6-8.9); Nucleated Red Blood Cells 0.3 /100 WBC (0); Platelet Count 285 K/mcL (140-400); Red Blood Count 3.21 M/mcL (4.19-5.50); Red Cell Distribution Width 15.5 % (11.5-14.5); Segmented Neutrophils % 60.9 %; White Blood Count 7.5 K/mcL (4.3-11.1)
[2019-10-24 01:41] LABS: Calcium 8.6 mg/dL (8.6-10.3); Potassium 4.1 mEq/L (3.5-5.1)
[2019-10-24] MEDS: *HR* Heparin 5,000 UNIT/ML VIAL SQ SCH ×2 (06:13→17:52)
[2019-10-24] MEDS: Aspirin 81 MG TAB.CHEW PO SCH (07:56)
[2019-10-24] MEDS: amLODIPine 5 MG TABLET PO SCH (07:56)
[2019-10-24] MEDS: Pantoprazole 40 MG VIAL IVP SCH (07:57)
[2019-10-24 09:59] LABS: Phosphorous 6.4 mg/dL (2.7-4.5)
[2019-10-24] MEDS: Budesonide/Formoterol 160/4.5 1 PUFF INH IH SCH ×2 (10:43→21:41)
[2019-10-24] MEDS: QUEtiapine Fumarate 25 MG TABLET PO SCH (17:51)
[2019-10-25] MEDS: QUEtiapine Fumarate 25 MG TABLET PO SCH (00:37)
[2019-10-25 01:55] LABS: Hematocrit 31.3 % (37.5-50.1); Hemoglobin 9.8 g/dL (12.9-16.9); Mean Corpuscular HGB Conc 31.3 g/dL (31.6-35.5); Mean Corpuscular Hemoglobin 31.9 pg (28.0-33.3); Mean Platelet Volume 9.7 fL (9.4-12.4); Platelet Count 298 K/mcL (140-400); Red Blood Count 3.07 M/mcL (4.19-5.50); Red Cell Distribution Width 15.7 % (11.5-14.5); White Blood Count 7.1 K/mcL (4.3-11.1)
[2019-10-25 02:11] LABS: Calcium 8.2 mg/dL (8.6-10.3); Potassium 4.3 mEq/L (3.5-5.1)
[2019-10-25] MEDS: *HR* Heparin 5,000 UNIT/ML VIAL SQ SCH ×2 (06:17→17:01)
[2019-10-25] MEDS ORDERED: 0.9 % Sodium Chloride 250 ML IVC PRN (07:12)
[2019-10-25] MEDS ORDERED: Albumin 25% 25gram/100mL 25 GM/100 ML IV.SOLN ONE (09:03)
[2019-10-25] MEDS ORDERED: Albumin 25% 25gram/100mL 25 GM/100 ML IV.SOLN IVPB ONE (09:16)
[2019-10-25] MEDS ORDERED: QUEtiapine Fumarate 25 MG TABLET PO PRN (10:39)
[2019-10-25] MEDS: Budesonide/Formoterol 160/4.5 1 PUFF INH IH SCH ×2 (10:41→20:06)
[2019-10-25] MEDS: Aspirin 81 MG TAB.CHEW PO SCH (11:38)
[2019-10-25] MEDS: amLODIPine 5 MG TABLET PO SCH (11:38)
[2019-10-26] MEDS: *HR* Heparin 5,000 UNIT/ML VIAL SQ SCH ×2 (05:42→17:41)
[2019-10-26 05:46] LABS: Hematocrit 33.6 % (37.5-50.1); Hemoglobin 10.7 g/dL (12.9-16.9); Mean Corpuscular HGB Conc 31.8 g/dL (31.6-35.5); Mean Corpuscular Hemoglobin 31.6 pg (28.0-33.3); Mean Corpuscular Volume 99.1 fL (83.0-100.0); Mean Platelet Volume 8.9 fL (9.4-12.4); Platelet Count 266 K/mcL (140-400); Red Blood Count 3.39 M/mcL (4.19-5.50); Red Cell Distribution Width 15.6 % (11.5-14.5); White Blood Count 6.3 K/mcL (4.3-11.1)
[2019-10-26 06:08] LABS: Calcium 9.1 mg/dL (8.6-10.3); Potassium 4.7 mEq/L (3.5-5.1)
[2019-10-26] MEDS: Budesonide/Formoterol 160/4.5 1 PUFF INH IH SCH ×2 (10:09→19:55)
[2019-10-26] MEDS: amLODIPine 5 MG TABLET PO SCH (11:01)
[2019-10-26] MEDS: Aspirin 81 MG TAB.CHEW PO SCH (11:01)
[2019-10-27 05:20] LABS: Basophils # 0.1 K/mcL (0.0-0.2); Basophils % 0.6 %; Eosinophils # 0.3 K/mcL (0.0-0.6); Eosinophils % 2.9 %; Hematocrit 33.7 % (37.5-50.1); Hemoglobin 10.7 g/dL (12.9-16.9); Immature Granulocytes % 0.5 % (0-4); Lymphocytes % 27.1 %; Mean Corpuscular HGB Conc 31.8 g/dL (31.6-35.5); Mean Corpuscular Hemoglobin 32.1 pg (28.0-33.3); Mean Corpuscular Volume 101.2 fL (83.0-100.0); Mean Platelet Volume 9.5 fL (9.4-12.4); Monocytes # 1.1 K/mcL (0.0-1.3); Monocytes % 10.2 %; Neutrophils # 6.5 K/mcL (1.6-8.9); Platelet Count 294 K/mcL (140-400); Red Blood Count 3.33 M/mcL (4.19-5.50); Red Cell Distribution Width 15.5 % (11.5-14.5); Segmented Neutrophils % 58.7 %
[2019-10-27 05:23] LABS: White Blood Count 11.1 K/mcL (4.3-11.1)
[2019-10-27 05:35] LABS: Calcium 9.2 mg/dL (8.6-10.3); Potassium 4.9 mEq/L (3.5-5.1)
[2019-10-27] MEDS: *HR* Heparin 5,000 UNIT/ML VIAL SQ SCH ×2 (06:16→17:30)
[2019-10-27] MEDS ORDERED: 0.9 % Sodium Chloride 250 ML IVC PRN (07:14)
[2019-10-27] MEDS: Aspirin 81 MG TAB.CHEW PO SCH (07:40)
[2019-10-27] MEDS: amLODIPine 5 MG TABLET PO SCH (07:41)
[2019-10-27] MEDS: Budesonide/Formoterol 160/4.5 1 PUFF INH IH SCH ×2 (09:50→20:23)
[2019-10-27] MEDS ORDERED: Albumin 25% 25gram/100mL 25 GM/100 ML IV.SOLN IVPB PRN (10:07)
[2019-10-27] MEDS ORDERED: Albumin 25% 25gram/100mL 25 GM/100 ML IV.SOLN ONE (10:09)
[2019-10-28] MEDS: *HR* Heparin 5,000 UNIT/ML VIAL SQ SCH ×2 (06:14→17:11)
[2019-10-28] MEDS: Budesonide/Formoterol 160/4.5 1 PUFF INH IH SCH ×3 (07:28→21:01)
[2019-10-28] MEDS: Aspirin 81 MG TAB.CHEW PO SCH (07:41)
[2019-10-28] MEDS: amLODIPine 5 MG TABLET PO SCH (07:41)
[2019-10-28 08:34] LABS: Hematocrit 36.4 % (37.5-50.1); Hemoglobin 11.3 g/dL (12.9-16.9); Mean Corpuscular Hemoglobin 31.7 pg (28.0-33.3); Mean Corpuscular Volume 102.2 fL (83.0-100.0); Mean Platelet Volume 9.8 fL (9.4-12.4); Platelet Count 272 K/mcL (140-400); Red Blood Count 3.56 M/mcL (4.19-5.50); Red Cell Distribution Width 15.6 % (11.5-14.5); White Blood Count 12.9 K/mcL (4.3-11.1)
[2019-10-28 08:53] LABS: Calcium 9.8 mg/dL (8.6-10.3); Potassium 4.3 mEq/L (3.5-5.1)
[2019-10-29 01:08] LABS: Basophils # 0.1 K/mcL (0.0-0.2); Eosinophils # 0.3 K/mcL (0.0-0.6); Eosinophils % 2.5 %; Hematocrit 37.5 % (37.5-50.1); Hemoglobin 11.7 g/dL (12.9-16.9); Immature Granulocytes % 0.4 % (0-4); Lymphocytes # 2.5 K/mcL (0.6-4.6); Lymphocytes % 20.1 %; Mean Corpuscular HGB Conc 31.2 g/dL (31.6-35.5); Mean Corpuscular Volume 102.5 fL (83.0-100.0); Mean Platelet Volume 9.7 fL (9.4-12.4); Monocytes # 0.9 K/mcL (0.0-1.3); Monocytes % 7.6 %; Neutrophils # 8.4 K/mcL (1.6-8.9); Platelet Count 278 K/mcL (140-400); Red Blood Count 3.66 M/mcL (4.19-5.50); Red Cell Distribution Width 15.5 % (11.5-14.5); Segmented Neutrophils % 68.4 %; White Blood Count 12.3 K/mcL (4.3-11.1)
[2019-10-29 01:57] LABS: Calcium 9.9 mg/dL (8.6-10.3); Potassium 5.7 mEq/L (3.5-5.1)
[2019-10-29] MEDS: *HR* Heparin 5,000 UNIT/ML VIAL SQ SCH ×2 (05:38→17:12)
[2019-10-29] MEDS ORDERED: 0.9 % Sodium Chloride 250 ML IVC PRN (06:29)
[2019-10-29] MEDS ORDERED: 0.9 % Sodium Chloride 1,000 ML PRIME SCH (06:30)
[2019-10-29] MEDS: Budesonide/Formoterol 160/4.5 1 PUFF INH IH SCH ×2 (07:39→19:48)
[2019-10-29] MEDS: Aspirin 81 MG TAB.CHEW PO SCH (09:33)
[2019-10-29] MEDS: amLODIPine 5 MG TABLET PO SCH (09:34)
[2019-10-29 13:03] LABS: Prolactin 19.05 ng/mL (3.00-14.70)
[2019-10-29] MEDS: levETIRAcetam 250 MG TABLET PO SCH ×2 (14:16→17:12)
[2019-10-30 01:47] LABS: Hematocrit 37.8 % (37.5-50.1); Hemoglobin 11.8 g/dL (12.9-16.9); Mean Corpuscular HGB Conc 31.2 g/dL (31.6-35.5); Mean Corpuscular Hemoglobin 31.6 pg (28.0-33.3); Mean Corpuscular Volume 101.1 fL (83.0-100.0); Mean Platelet Volume 10.2 fL (9.4-12.4); Platelet Count 241 K/mcL (140-400); Red Blood Count 3.74 M/mcL (4.19-5.50); Red Cell Distribution Width 15.3 % (11.5-14.5)
[2019-10-30 02:05] LABS: Calcium 9.8 mg/dL (8.6-10.3); Potassium 5.4 mEq/L (3.5-5.1)
[2019-10-30] MEDS: *HR* Heparin 5,000 UNIT/ML VIAL SQ SCH (05:35)
[2019-10-30] MEDS: levETIRAcetam 250 MG TABLET PO SCH (05:35)
[2019-10-30] MEDS: Budesonide/Formoterol 160/4.5 1 PUFF INH IH SCH (07:30)
[2019-10-30] MEDS: Aspirin 81 MG TAB.CHEW PO SCH (10:11)
[2019-10-30] MEDS: amLODIPine 5 MG TABLET PO SCH (10:25)
[2019-10-30] MEDS ORDERED: 0.9 % Sodium Chloride 250 ML IVC PRN (12:58)
[2019-10-30] MEDS ORDERED: *HR* Heparin 10,000 UNIT/10 ML VIAL IV PRN ×2 (12:58)
[2019-10-30 16:22] VITALS: BP 118/66
[2019-10-31] MEDS ORDERED: amLODIPine 5 MG TABLET PO SCH (09:00)
== END 2019-10-30 16:51 | disposition home health service (06) | DRG 280 ==
LOC: EMEROOARM 07:59 → 2NENU 07:59 → SUATTDRO 13:26 → ICNU 10-16 20:34 → 2ANU 10-22 15:03
PROVIDERS: ADMIT Pediatrics; ATTEND Internal Medicine

== ENCOUNTER 2020-01-14 17:05 | Inpatient (IN) ==
[2020-01-14 19:13] LABS: Basophils # 0.1 K/mcL (0.0-0.2); Basophils % 0.6 %; Eosinophils # 0.1 K/mcL (0.0-0.6); Eosinophils % 1.6 %; Hematocrit 30.9 % (37.5-50.1); Hemoglobin 9.8 g/dL (12.9-16.9); Immature Granulocytes % 0.4 % (0-4); Lymphocytes # 1.9 K/mcL (0.6-4.6); Lymphocytes % 23.5 %; Mean Corpuscular HGB Conc 31.7 g/dL (31.6-35.5); Mean Corpuscular Hemoglobin 31.1 pg (28.0-33.3); Mean Corpuscular Volume 98.1 fL (83.0-100.0); Mean Platelet Volume 10.2 fL (9.4-12.4); Monocytes # 0.6 K/mcL (0.0-1.3); Neutrophils # 5.5 K/mcL (1.6-8.9); Platelet Count 226 K/mcL (140-400); Red Blood Count 3.15 M/mcL (4.19-5.50); Segmented Neutrophils % 66.9 %; White Blood Count 8.3 K/mcL (4.3-11.1)
[2020-01-14 19:52] LABS: Potassium 4.8 mEq/L (3.5-5.1); Troponin I 0.05 ng/mL (< 0.04)
[2020-01-14 20:19] LABS: Albumin 3.5 g/dL (3.5-5.7); Bilirubin,Total 0.4 mg/dL (0.3-1.0); Calcium 6.6 mg/dL (8.6-10.3); Globulin 3.4 g/dL (2.4-3.5); Total Protein 6.9 g/dL (6.4-8.9)
[2020-01-14] MEDS ORDERED: Aspirin 325 MG TABLET PO ONE (20:29)
[2020-01-14] MEDS ORDERED: Naloxone 0.4 MG/ML INJ IVP PRN (22:25)
[2020-01-15] MEDS: *HR* Heparin 5,000 UNIT/ML VIAL SQ SCH ×2 (05:40→16:27)
[2020-01-15] MEDS ORDERED: 0.9 % Sodium Chloride 250 ML IVC PRN (08:16)
[2020-01-15] MEDS ORDERED: *HR* Heparin 10,000 UNIT/10 ML VIAL IV PRN (08:21)
[2020-01-15 08:24] LABS: Hematocrit 27.2 % (37.5-50.1); Hemoglobin 8.8 g/dL (12.9-16.9); Mean Corpuscular HGB Conc 32.4 g/dL (31.6-35.5); Mean Corpuscular Hemoglobin 31.3 pg (28.0-33.3); Mean Corpuscular Volume 96.8 fL (83.0-100.0); Platelet Count 205 K/mcL (140-400); Red Blood Count 2.81 M/mcL (4.19-5.50); Red Cell Distribution Width 14.7 % (11.5-14.5); White Blood Count 8.9 K/mcL (4.3-11.1)
[2020-01-15 08:30] LABS: INR 1.1
[2020-01-15] MEDS ORDERED: 0.9 % Sodium Chloride 1,000 ML PRIME SCH (08:30)
[2020-01-15 08:50] LABS: Albumin 3.3 g/dL (3.5-5.7); Albumin/Globulin Ratio 1.1 (1.1-2.2); Bilirubin,Total 0.3 mg/dL (0.3-1.0); Calcium 6.3 mg/dL (8.6-10.3); Globulin 3.1 g/dL (2.4-3.5); Magnesium 1.2 mg/dL (1.6-2.6); Phosphorous 8.9 mg/dL (2.7-4.5); Potassium 5.4 mEq/L (3.5-5.1); Total Protein 6.4 g/dL (6.4-8.9); Troponin I 0.05 ng/mL (< 0.04)
[2020-01-15 12:30] LABS: % Iron Saturation 16 % (20-55); Iron 38 mcg/dL (65-175); Transferrin 166 mg/dL (203-362)
[2020-01-15 12:48] LABS: Ferritin 191 ng/mL (20-250)
[2020-01-15 12:53] LABS: Folate 4.9 ng/mL (3.0-16.0)
[2020-01-15] MEDS: Calcium Acetate 667 MG CAPSULE PO SCH ×2 (13:30→16:27)
[2020-01-15] MEDS: amLODIPine 5 MG TABLET PO SCH (13:30)
[2020-01-15 19:22] VITALS: BP 160/86
[2020-01-16] MEDS ORDERED: Furosemide 20 MG/2 ML VIAL IVP ONE (02:29)
[2020-01-16] MEDS: *HR* Heparin 5,000 UNIT/ML VIAL SQ SCH ×2 (05:17→15:34)
[2020-01-16] MEDS: Calcium Acetate 667 MG CAPSULE PO SCH ×3 (09:32→15:34)
[2020-01-16] MEDS: amLODIPine 5 MG TABLET PO SCH (09:32)
[2020-01-16] MEDS ORDERED: levETIRAcetam 250 MG TABLET PO SCH (13:30)
[2020-01-16] MEDS ORDERED: Multivit/Ca/Min/Fe/FA 1 TAB TABLET PO SCH (21:00)
[2020-01-17] MEDS ORDERED: Aspirin Enteric Coated 81 MG Tablet PO SCH (09:00)
[2020-01-17] MEDS ORDERED: NIFEdipine XL (24 HR) 60 MG TAB.ER.24 PO SCH (09:00)
== END 2020-01-16 18:17 | disposition left against medical advice (07) | DRG 682 ==
LOC: 2ANU 17:05 → EMEROOARM 17:05 → SUATTDRO 21:36 → 2ANU 22:39
PROVIDERS: ADMIT Internal Medicine; ATTEND Internal Medicine

== ENCOUNTER 2020-02-02 15:26 | Inpatient (IN) ==
[2020-02-02] MEDS ORDERED: *HR* FentaNYL (PF) 100 MCG/2 ML VIAL IVP ONE (15:39)
[2020-02-02] MEDS ORDERED: Isovue-370 500 ML BOTTLE IVP ONE (15:39)
[2020-02-02] MEDS ORDERED: Calcium Gluconate 1gm/50mL 1 GM/50 ML BAG IVPB ONE (15:41)
[2020-02-02] MEDS ORDERED: 0.9 % Sodium Chloride 1,000 ML IVC SCH (15:45)
[2020-02-02 16:10] LABS: Basophils % 0.1 %; Hematocrit 31.2 % (37.5-50.1); Hemoglobin 9.8 g/dL (12.9-16.9); Immature Granulocytes % 1.3 % (0-4); Lymphocytes % 4.6 %; Mean Corpuscular HGB Conc 31.4 g/dL (31.6-35.5); Mean Corpuscular Hemoglobin 30.9 pg (28.0-33.3); Mean Corpuscular Volume 98.4 fL (83.0-100.0); Monocytes # 0.8 K/mcL (0.0-1.3); Monocytes % 3.9 %; Neutrophils # 19.2 K/mcL (1.6-8.9); Platelet Count 164 K/mcL (140-400); Red Blood Count 3.17 M/mcL (4.19-5.50); Red Cell Distribution Width 15.7 % (11.5-14.5); Segmented Neutrophils % 90.1 %; White Blood Count 21.3 K/mcL (4.3-11.1)
[2020-02-02] MEDS ORDERED: *HR* Heparin 5,000 UNIT/ML VIAL IVP ONE (16:21)
[2020-02-02] MEDS ORDERED: Aspirin 81 MG TAB.CHEW PO STA (16:22)
[2020-02-02] MEDS ORDERED: Heparin 25,000UNIT/250ML 1/2NS 25,000 UNIT/250 ML IV.SOLN IVC SCH (16:30)
[2020-02-02 16:34] LABS: Blood Urea Nitrogen > 130 mg/dL (8-23); Calcium 7.6 mg/dL (8.6-10.3); Carbon Dioxide 9 mEq/L (23-29); Chloride 105 mEq/L (98-107); Glucose 119 mg/dL (70-105); Potassium 7.1 mEq/L (3.5-5.1); Sodium 138 mEq/L (136-145); Troponin I 0.11 ng/mL (< 0.04); eGFR For African Americans 3 (> 60); eGFR For Non-African Americans 2 (> 60)
[2020-02-02] MEDS ORDERED: Albuterol 2.5 MG/3 ML NEBULIZER IH ONE (17:17)
[2020-02-02] MEDS ORDERED: Calcium Gluconate 1gm/50mL 1 GM/50 ML BAG IVPB PRN (17:19)
[2020-02-02] MEDS ORDERED: 0.9 % Sodium Chloride 250 ML IVC PRN (17:41)
[2020-02-02] MEDS ORDERED: *HR* Heparin 10,000 UNIT/10 ML VIAL IV PRN ×2 (17:41)
[2020-02-02] MEDS ORDERED: 0.9 % Sodium Chloride 1,000 ML PRIME SCH (17:45)
[2020-02-02] MEDS ORDERED: Ondansetron 4 MG/2 ML VIAL IVP PRN (18:37)
[2020-02-02] MEDS ORDERED: Acetaminophen 325 MG TABLET PO PRN (18:37)
[2020-02-02] MEDS ORDERED: Naloxone 0.4 MG/ML INJ IVP PRN (18:37)
[2020-02-02] MEDS ORDERED: *HR* Metoprolol 5 MG/5 ML VIAL IVP ONE ×2 (19:29→19:48)
[2020-02-02 19:39] LABS: Heparin anti-factor XA UFH 0.77 IU/mL (0.30-0.70); INR 1.1; Prothrombin Time 12.2 Seconds (9.4-12.1)
[2020-02-02 19:39] LABS: Potassium 6.1 mEq/L (3.5-5.1)
[2020-02-02 19:41] LABS: Activated Partial Thrombo Time 69.5 Seconds (26.0-36.0)
[2020-02-02] MEDS ORDERED: Amiodarone Premix 360 MG/200 ML BAG IVC ONE (20:08)
[2020-02-02] MEDS ORDERED: Amiodarone Premix 150 MG/100 ML BAG IVPB ONE (20:08)
[2020-02-02 20:20] LABS: Thyroid Stimulating Hormone 3.22 mcIU/mL (0.340-5.600)
[2020-02-02 21:17] LABS: Calcium 7.7 mg/dL (8.6-10.3)
[2020-02-02 21:23] LABS: Troponin I 0.1 ng/mL (< 0.04)
[2020-02-03] MEDS: Amiodarone Premix 360 MG/200 ML BAG IVC SCH ×2 (03:10→16:49)
[2020-02-03 03:46] LABS: Basophils % 0.1 %; Eosinophils % 0.1 %; Hematocrit 25.6 % (37.5-50.1); Hemoglobin 8.3 g/dL (12.9-16.9); Immature Granulocytes % 0.7 % (0-4); Lymphocytes # 0.8 K/mcL (0.6-4.6); Mean Corpuscular HGB Conc 32.4 g/dL (31.6-35.5); Mean Corpuscular Hemoglobin 31.8 pg (28.0-33.3); Mean Corpuscular Volume 98.1 fL (83.0-100.0); Monocytes # 0.6 K/mcL (0.0-1.3); Monocytes % 3.6 %; Neutrophils # 14.7 K/mcL (1.6-8.9); Nucleated Red Blood Cells 0.1 /100 WBC (0); Platelet Count 134 K/mcL (140-400); Red Blood Count 2.61 M/mcL (4.19-5.50); Red Cell Distribution Width 15.7 % (11.5-14.5); Segmented Neutrophils % 90.5 %; White Blood Count 16.2 K/mcL (4.3-11.1)
[2020-02-03 04:08] LABS: Potassium 5.7 mEq/L (3.5-5.1)
[2020-02-03 04:13] LABS: Troponin I 0.09 ng/mL (< 0.04)
[2020-02-03] MEDS ORDERED: Albuterol Neb 7.5 MG, Sodium Chloride for inhalation 12 ML IH ONE (04:25)
[2020-02-03] MEDS ORDERED: *HR* Heparin 5,000 UNIT/ML VIAL IVP PRN ×6 (04:33→05:20)
[2020-02-03] MEDS ORDERED: *HR* Heparin 10,000 UNIT/10 ML VIAL IV PRN (08:03)
[2020-02-03] MEDS ORDERED: 0.9 % Sodium Chloride 250 ML IVC PRN (08:03)
[2020-02-03] MEDS: Famotidine 20 MG/2 ML VIAL IVP SCH (09:50)
[2020-02-03] MEDS: Aspirin Enteric Coated 81 MG Tablet PO SCH (18:32)
[2020-02-03] MEDS ORDERED: *HR* Metoprolol 5 MG/5 ML VIAL IVP PRN (19:28)
[2020-02-03] MEDS: levETIRAcetam 250 MG TABLET PO SCH (20:02)
[2020-02-03] MEDS: Heparin 25,000UNIT/250ML 1/2NS 25,000 UNIT/250 ML IV.SOLN IVC SCH (20:39)
[2020-02-04 00:43] LABS: Calcium 7.3 mg/dL (8.6-10.3); Magnesium 1.3 mg/dL (1.6-2.6); Phosphorous 3.9 mg/dL (2.7-4.5)
[2020-02-04 03:50] LABS: Basophils % 0.1 %; Hematocrit 25.6 % (37.5-50.1); Hemoglobin 8.2 g/dL (12.9-16.9); Immature Granulocytes % 1.9 % (0-4); Lymphocytes # 0.6 K/mcL (0.6-4.6); Lymphocytes % 3.9 %; Mean Corpuscular Hemoglobin 30.5 pg (28.0-33.3); Mean Corpuscular Volume 95.2 fL (83.0-100.0); Mean Platelet Volume 9.9 fL (9.4-12.4); Monocytes # 0.8 K/mcL (0.0-1.3); Monocytes % 5.5 %; Neutrophils # 12.8 K/mcL (1.6-8.9); Platelet Count 111 K/mcL (140-400); Red Blood Count 2.69 M/mcL (4.19-5.50); Red Cell Distribution Width 15.3 % (11.5-14.5); Segmented Neutrophils % 88.6 %; White Blood Count 14.5 K/mcL (4.3-11.1)
[2020-02-04 04:10] LABS: Calcium 7.3 mg/dL (8.6-10.3)
[2020-02-04] MEDS: Amiodarone Premix 360 MG/200 ML BAG IVC SCH (04:12)
[2020-02-04] MEDS ORDERED: *HR* Amiodarone 200 MG TABLET PO SCH (09:15)
[2020-02-04] MEDS: Aspirin Enteric Coated 81 MG Tablet PO SCH (09:28)
[2020-02-04] MEDS: levETIRAcetam 250 MG TABLET PO SCH ×2 (09:28→19:59)
[2020-02-04] MEDS: Heparin 25,000UNIT/250ML 1/2NS 25,000 UNIT/250 ML IV.SOLN IVC SCH (22:09)
[2020-02-05 02:12] LABS: Basophils % 0.1 %; Eosinophils % 0.2 %; Hematocrit 24.5 % (37.5-50.1); Hemoglobin 7.6 g/dL (12.9-16.9); Immature Granulocytes % 1.2 % (0-4); Lymphocytes # 0.9 K/mcL (0.6-4.6); Lymphocytes % 8.8 %; Mean Corpuscular Volume 96.8 fL (83.0-100.0); Mean Platelet Volume 10.3 fL (9.4-12.4); Monocytes # 0.8 K/mcL (0.0-1.3); Neutrophils # 8.4 K/mcL (1.6-8.9); Platelet Count 110 K/mcL (140-400); Red Blood Count 2.53 M/mcL (4.19-5.50); Red Cell Distribution Width 15.4 % (11.5-14.5); Segmented Neutrophils % 81.7 %; White Blood Count 10.2 K/mcL (4.3-11.1)
[2020-02-05 02:28] LABS: Calcium 7.5 mg/dL (8.6-10.3); Potassium 4.1 mEq/L (3.5-5.1)
[2020-02-05] MEDS ORDERED: 0.9 % Sodium Chloride 250 ML IVC PRN (07:05)
[2020-02-05] MEDS: Heparin 25,000UNIT/250ML 1/2NS 25,000 UNIT/250 ML IV.SOLN IVC SCH (08:08)
[2020-02-05] MEDS: Famotidine 20 MG/2 ML VIAL IVP SCH (08:09)
[2020-02-05] MEDS: Aspirin Enteric Coated 81 MG Tablet PO SCH (08:09)
[2020-02-05] MEDS: levETIRAcetam 250 MG TABLET PO SCH ×2 (08:09→21:50)
[2020-02-05] MEDS ORDERED: *HR* Heparin 10,000 UNIT/10 ML VIAL IV PRN (12:04)
[2020-02-05] MEDS ORDERED: *HR* Metoprolol 5 MG/5 ML VIAL IVP ONE ×2 (13:19→14:48)
[2020-02-05] MEDS: *HR* Heparin 5,000 UNIT/ML VIAL SQ SCH (15:48)
[2020-02-06] MEDS: *HR* Heparin 5,000 UNIT/ML VIAL SQ SCH ×2 (05:40→09:21)
[2020-02-06] MEDS: levETIRAcetam 250 MG TABLET PO SCH ×2 (07:24→21:42)
[2020-02-06] MEDS: Aspirin Enteric Coated 81 MG Tablet PO SCH (07:24)
[2020-02-07] MEDS: *HR* Heparin 5,000 UNIT/ML VIAL SQ SCH ×2 (05:39→15:09)
[2020-02-07] MEDS ORDERED: *HR* Heparin 10,000 UNIT/10 ML VIAL IV PRN (08:38)
[2020-02-07] MEDS ORDERED: 0.9 % Sodium Chloride 250 ML IVC PRN ×2 (08:38→09:47)
[2020-02-07] MEDS: Aspirin Enteric Coated 81 MG Tablet PO SCH (08:43)
[2020-02-07] MEDS: Famotidine 20 MG/2 ML VIAL IVP SCH (08:43)
[2020-02-07] MEDS: levETIRAcetam 250 MG TABLET PO SCH ×2 (08:43→20:22)
[2020-02-07] MEDS ORDERED: 0.9 % Sodium Chloride 1,000 ML PRIME SCH ×2 (08:45→09:47)
[2020-02-07] MEDS ORDERED: Naloxone 0.4 MG/ML INJ IVP PRN (09:47)
[2020-02-07] MEDS ORDERED: *HR* Metoprolol 5 MG/5 ML VIAL IVP PRN (09:47)
[2020-02-07] MEDS ORDERED: Ondansetron 4 MG/2 ML VIAL IVP PRN (09:47)
[2020-02-07] MEDS ORDERED: Acetaminophen 325 MG TABLET PO PRN (09:47)
[2020-02-07 16:03] LABS: Red Blood Count 2.73 M/mcL (4.19-5.50)
[2020-02-07 16:05] LABS: Basophils % 0.1 %; Eosinophils % 0.3 %; Hemoglobin 8.3 g/dL (12.9-16.9); Immature Granulocytes % 0.9 % (0-4); Immature Platelets 8.8 % (1.1-6.1); Lymphocytes # 0.6 K/mcL (0.6-4.6); Lymphocytes % 5.8 %; Mean Corpuscular HGB Conc 30.7 g/dL (31.6-35.5); Mean Corpuscular Hemoglobin 30.4 pg (28.0-33.3); Mean Corpuscular Volume 98.9 fL (83.0-100.0); Mean Platelet Volume 11.5 fL (9.4-12.4); Monocytes # 0.7 K/mcL (0.0-1.3); Monocytes % 6.8 %; Nucleated Red Blood Cells 0.4 /100 WBC (0); Red Cell Distribution Width 14.8 % (11.5-14.5); Segmented Neutrophils % 86.1 %; White Blood Count 9.7 K/mcL (4.3-11.1)
[2020-02-07 16:10] LABS: Neutrophils # 8.4 K/mcL (1.6-8.9); Platelet Count 98 K/mcL (140-400)
[2020-02-07 16:15] LABS: Calcium 8.4 mg/dL (8.6-10.3); Potassium 3.6 mEq/L (3.5-5.1)
[2020-02-08] MEDS: *HR* Heparin 5,000 UNIT/ML VIAL SQ SCH ×2 (05:16→17:46)
[2020-02-08] MEDS ORDERED: Vancomycin 1 EACH in 0.9 % Sodium Chloride 250 ML IVPB SCH (11:00)
[2020-02-08] MEDS: levETIRAcetam 250 MG TABLET PO SCH ×2 (11:13→19:40)
[2020-02-08] MEDS: Aspirin Enteric Coated 81 MG Tablet PO SCH (11:13)
[2020-02-08] MEDS: Piperacillin/Tazobactam 3.375 GM in 0.9 % Sodium Chloride Mini Bag 100 ML IVPB SCH (16:42)
[2020-02-09] MEDS: *HR* Heparin 5,000 UNIT/ML VIAL SQ SCH (05:17)
[2020-02-09] MEDS: Piperacillin/Tazobactam 3.375 GM in 0.9 % Sodium Chloride Mini Bag 100 ML IVPB SCH (05:18)
[2020-02-09] MEDS ORDERED: *HR* Heparin 10,000 UNIT/10 ML VIAL IV PRN (08:02)
[2020-02-09] MEDS ORDERED: 0.9 % Sodium Chloride 250 ML IVC PRN (08:02)
[2020-02-09] MEDS ORDERED: 0.9 % Sodium Chloride 1,000 ML PRIME SCH (08:15)
[2020-02-09] MEDS: Aspirin Enteric Coated 81 MG Tablet PO SCH (08:28)
[2020-02-09] MEDS ORDERED: Famotidine 20 MG/2 ML VIAL IVP SCH (09:00)
[2020-02-09 09:39] LABS: Mean Corpuscular Volume 98.3 fL (83.0-100.0)
[2020-02-09 09:41] LABS: Immature Platelets 7.8 % (1.1-6.1); Mean Corpuscular HGB Conc 30.4 g/dL (31.6-35.5); Mean Corpuscular Hemoglobin 29.9 pg (28.0-33.3); Mean Platelet Volume 11.3 fL (9.4-12.4); Red Blood Count 2.34 M/mcL (4.19-5.50); Red Cell Distribution Width 14.6 % (11.5-14.5); White Blood Count 10.3 K/mcL (4.3-11.1)
[2020-02-09] MEDS ORDERED: *HR* Metoprolol 5 MG/5 ML VIAL IVP ONE (09:45)
[2020-02-09 09:54] VITALS: BP 112/81
[2020-02-09 09:58] LABS: Calcium 7.8 mg/dL (8.6-10.3); Potassium 4.2 mEq/L (3.5-5.1)
== END 2020-02-09 16:10 | disposition hospice, home (50) | DRG 682 ==
LOC: EMEROOARM 15:26 → SUATTDRO 17:54 → ICNU 17:54 → 2ANU 02-04 19:38
PROVIDERS: ADMIT Family Medicine; ATTEND Family Medicine